=== PATIENT | female | born 1975 ===

== ENCOUNTER 2022-01-31 04:59 | Emergency (ER) | payer MEDICARE ==
[2022-01-31 05:58] VITALS: BP 140/90
--- NOTE | 2022-02-02 09:06 | Electrocardiograph Report ---
[facility] Test Date: 2022-01-31 Test Time: 06:14:07 Pat Name: REZA LYNCH Department: Room: Gender: F Theatre Manager: NURSE : 1975 Requested By: SARAH CORADO Order Number: [id number] Reading MD: Jack Escobar Measurements Intervals [place] Rate: 88 P: 74 [place]: 145 QRS: 34 QRSD: 64 T: 42 QT: 367 QTc: 445 Interpretive Statements Sinus rhythm No previous ECG available for comparison Electronically Signed On 02-02-2022 9:06:12 EDT by Jack Escobar
== END 2022-01-31 09:00 | disposition left against medical advice (07) ==
LOC: ED 04:59
DX: M54.50 Low back pain, unspecified (principal); Z53.21 Procedure and treatment not carried out due to patient leaving prior to being seen by health care provider
CPT/HCPCS: 93005